=== PATIENT | male | born 1995 | race Caucasian/White ===

== ENCOUNTER 2021-05-18 11:06 | Emergency (ER) | payer MEDICARE ==
[~2021-05-18] VITALS: Ht 182.9 cm; Wt 77.2 kg
[2021-05-18 11:13] VITALS: BP 126/78
--- NOTE | 2021-05-18 11:52 | PHYS DOC ---
Past History Past Surgical History: No Surgical History (SAMMIE DE LA PAZ APRN) General Adult EDM: Chief Complaint: HEADACHE HPI: HPI: Patient is a 25-year-old male who presents to the emergency department for COVID test. Patient reports that on he experienced body aches and a headache and called into work until Monday and his boss told him that he needed to be tested for COVID-19 before returning to work. Patient reports that his body aches and headache have resolved. He reports a nonproductive cough. No treatment prior to arrival. Patient denies shortness of breath, nausea, vomiting, fevers, sick exposures, neck stiffness, vision changes, phonophobia/photophobia. (SAMMIE DE LA PAZ APRN) Review of Systems: Review of Systems: Constitutional: negative unless reported in HPI Eyes: negative unless reported in HPI HENT: negative unless reported in HPI Respiratory: negative unless reported in HPI Cardiovascular: negative unless reported in HPI GI: negative unless reported in HPI : negative unless reported in HPI Musculoskeletal: negative unless reported in HPI Integument: negative unless reported in HPI Neurologic: negative unless reported in HPI Endocrine: negative unless reported in HPI Lymphatic: negative unless reported in HPI Psychiatric: negative unless reported in HPI (SAMMIE DE LA PAZ APRN) Physical Exam: PE: Constitutional: Well developed, well nourished, no acute distress, non-toxic appearance. [] HENT: Normocephalic, atraumatic, bilateral external ears normal, oropharynx moist, no oral exudates, nose normal. [] Eyes: PERRL, EOMI, conjunctiva normal, no discharge. [] Neck: Normal range of motion, no tenderness, no nucchal rigidity, supple, no stridor. [] Cardiovascular:Heart rate regular rhythm, no murmur [] Lungs & Thorax: Bilateral breath sounds clear to auscultation [] Abdomen: soft and flat Skin: Warm, dry, no erythema, no rash. [] Back: No tenderness, normal ROM Extremities: No tenderness, no cyanosis, no clubbing, ROM intact, no edema. [] Neurologic: Alert and oriented X 3, normal motor function, normal sensory function, no focal deficits noted. [] Psychologic: Affect normal, judgement normal, mood normal. [] (SAMMIE DE LA PAZ APRN) Current Patient Data: Labs: Laboratory Tests Test 1/11/22 11:53 SARS-CoV-2 Antigen (Rapid) Positive Vital Signs: Vital Signs Date Time Temp Pulse Resp B/P (MAP) Pulse Ox O2 Delivery O2 Flow Rate FiO2 05/18/21 11:13 97.0 80 16 126/78 (94) 100 Room Air (SAMMIE DE LA PAZ APRN) EKG: EKG: [] (SAMMIE DE LA PAZ APRN) Radiology/Procedures: Radiology/Procedures: [] (SAMMIE DE LA PAZ APRN) Heart Score: C/O Chest Pain: N/A Risk Factors: Risk Factors: DM, Current or recent (<one month) smoker, HTN, HLP, family history of CAD, obesity. Risk Scores: Score 0 - 3: 2.5% MACE over next 6 weeks - Discharge Home Score 4 - 6: 20.3% MACE over next 6 weeks - Admit for Clinical Observation Score 7 - 10: 72.7% MACE over next 6 weeks - Early Invasive Strategies (SAMMIE DE LA PAZ APRN) Course & Med Decision Making: Course & Med Decision Making Pertinent Labs and Imaging studies reviewed. (See chart for details) Patient presents to the emergency department requesting a COVID test per his employer. Patient reports he called in sick on with body aches and a headache and is requiring a test to return to work. Patient reports that his symptoms have resolved other than a lingering nonproductive cough. Patient reports that the cough is very mild and is only when he is out in the cold air. Patient will be tested for COVID-19 and that was positive. Patient advised to take Tylenol and ibuprofen for any pain or fevers and take some for cough. I discussed with patient all findings and diagnostic testing as well as the need to follow-up with PCP for further evaluation and treatment or return to the ER if any new or worsening symptoms. Strict return precautions were also discussed at length. Patient voiced understanding and agreement with the plan. Patient is hemodynamically stable at the time of disposition. (SAMMIE DE LA PAZ APRN) Dragon Disclaimer: Dragon Disclaimer: This electronic medical record was generated, in whole or in part, using a voice recognition dictation system. (SAMMIE DE LA PAZ APRN) Attending Co-Sign The patient was seen and interviewed as well as examined at the bedside. The chart was reviewed. The case was discussed. Agree with the plan of care. (KIRTI PASTOR DO) Departure Departure: Impression: Primary Impression: COVID-19 Disposition: 01 HOME / SELF CARE / HOMELESS Condition: GOOD Referrals: [facility] (PCP) Patient Instructions: Myalgia, Adult Additional Instructions: You were seen in the emergency department for COVID test after experiencing body aches and headache. Your COVID test was positive. If you experience any pain or fevers at home please take Tylenol and/or ibuprofen. If you continue to have a cough he can take Delsym [id number]. Follow-up with your primary care provider within a week. Please self isolate per CDC guidelines. Return to the emergency department if you develop worsening of your symptoms, high fevers refractory to treatment, intractable nausea or vomiting, shortness of breath, chest pain. You have been tested for or diagnosed with COVID-19. It is an infection caused by a new type of coronavirus. COVID-19 will cause cold-like or mild flu symptoms in most. It can cause more severe symptoms like problems breathing in some. There is no treatment for COVID-19. The body will clear the infection over time. Self-care will help to ease discomfort. Steps to Take: Self-Care Rest as needed. Healthy habits may help you feel better. Steps include: Choose healthy foods including fruits and vegetables. Drink water throughout the day. Get plenty of sleep each night. If you smoke, try to quit. It may ease breathing. Avoid alcohol. Keep Others Healthy The virus can spread to others. Droplets are released every time you sneeze or cough. The droplets can get into the mouth, nose, or eyes of people near you and lead to infection. To lower the chances of spreading COVID-19 to others: Stay at home until your doctor has said it is safe to leave. If you tested positive this will mean staying isolated until both of the following are true: At least 7 days have passed since the start of illness. You are free of fever for at least 72 hours without the use of medicine. During this time: - Avoid public areas, events, or transportation. Do not return to work or school until your doctor has said it is safe to do so. - Call ahead if you need to go to a medical center. Let them know you may have COVID-19. It will help them guide you where to go. They may also ask you to wear a facemask when you come to the office. - If you call for emergency medical services, let them know you may have COVID- 19. While at home: - Try to avoid close contact with others. Stay about 6 feet away. - If possible, spend most of your time in a separate room from others. - Use a face mask if you will be in close contact with others such as sharing a room or vehicle. - Have someone wipe down common surfaces in the home. Use household vacuum cleaner mechanic every day on areas like doorknobs, counters, or sinks. - Cough or sneeze into a tissue. Throw the tissue away right after use. If a tissue is not available, cough or sneeze into your elbow. - Wash your hands often. Wash them after sneezing or coughing. Use soap and water and wash for at least 20 seconds. Alcohol based hand sewer cleaner can be used if soap and water is not available. - Do not prepare food for others. Avoid sharing personal items like forks, spoons, or toothbrushes. - Avoid close contact with pets while you are sick. There is no evidence of the virus passing to pets. This is a safety step until more is known about this virus. Isolation can be frustrating. Social interaction can help. Keep in touch with friends and family through phone and tech options. You can still interact with others in your home, just keep a safe distance of about 6 feet. Follow-up: Your doctors office will check in with you to see if there are any changes in your health. You may be asked to keep track of symptoms to share with them. They will also let you know when you are clear to be in public again. Problems to Look Out For: Contact your doctor if your recovery is not going as you expect. Get emergency care if you have problems such as: - Trouble breathing - Nonstop chest pain or pressure - Changes in awareness, confusion, or problems waking - Lips or face have bluish color - Worsening of symptoms If you think you have an emergency, call for emergency medical services right away. As taken from [facility] SAMMIE DE LA PAZ APRN May 18, 2021 11:52 KIRTI PASTOR DO May 19, 2021 06:45
== END 2021-05-18 13:28 | disposition home or self-care (01) ==
LOC: ER 11:06
DX: U07.1 COVID-19 (principal)
CPT/HCPCS: 87426; 99283